=== PATIENT | female | born 1955 | race Caucasian/White ===

== ENCOUNTER 2023-04-20 10:10 | Inpatient (IN) | payer MEDICARE ==
[~2023-04-20] VITALS: Ht 160 cm; Wt 100.7 kg
[2023-04-20] MEDS ORDERED: ONDANSETRON HCL INJ 2MG/ML 2ML 2 MG/ML VIAL IV STA ×2 (10:19→13:59)
[2023-04-20] MEDS ORDERED: SODIUM CHLORIDE 0.9% 1000ML 1,000 ML IV STA (10:19)
[2023-04-20] MEDS ORDERED: Morphine 4mg INJECTION 4 MG/ML INJ IV STA ×2 (10:19→13:59)
[2023-04-20 10:58] LABS: BASOPHILS # (AUTO) 0.1 (0.0-0.1); BASOPHILS % 0.6 % (0.0-1.0); EOSINOPHILS # (AUTO) 0.3 (0.0-0.4); EOSINOPHILS % 2.4 % (0.0-6.0); HEMATOCRIT 46.2 % (34.2-44.1); HEMOGLOBIN 15.9 g/dL (12.0-16.0); LYMPHOCYTES # (AUTO) 0.9 (1.0-3.2); LYMPHOCYTES % 7.7 % (18.0-39.1); MEAN CORPUSCULAR HEMOGLOBIN 30.4 pg (28-32); MEAN CORPUSCULAR HGB CONC 34.4 g/dL (31-35); MEAN CORPUSCULAR VOLUME 88.3 fL (81-99); MONOCYTES # (AUTO) 1.2 (0.2-0.8); MONOCYTES % 9.7 % (4.4-11.3); NEUTROPHILS # (AUTO) 9.5 (2.1-6.9); NEUTROPHILS % 79.1 % (38.7-80.0); PLATELET COUNT 284 x10e3/uL (140-360); RED BLOOD COUNT 5.23 x10e6/uL (3.6-5.1); RED CELL DISTRIBUTION WIDTH 13.7 % (11.7-14.4)
[2023-04-20 11:03] LABS: CLARITY,URINE SL CLOUDY (CLEAR); COLOR,URINE YELLOW (YELLOW); KETONES,URINE 1+ (NEGATIVE); LEUKOCYTE ESTERASE ,URINE NEGATIVE (NEGATIVE); NITRITE,URINE POSITIVE (NEGATIVE); PROTEIN,URINE DIPSTICK 1+ (NEGATIVE)
[2023-04-20 11:04] LABS: URINE UROBILINOGEN 1 mg/dL (0.2 - 1)
[2023-04-20 11:12] LABS: INR 1.04; PROTHROMBIN TIME 14.2 seconds (11.9-14.5)
[2023-04-20 11:13] LABS: PARTIAL THROMBOPLASTIN TIME 33.8 seconds (23.8-35.5)
[2023-04-20 11:20] LABS: BACTERIA,URINE MANY /HPF; EPITHELIAL CELLS,URINE MANY /LPF; RBC,URINE 0-5 /HPF (0-5); WBC,URINE (MAN) 0-5 /HPF (0-5)
[2023-04-20 11:26] LABS: ALANINE AMINOTRANSFERASE 13 IU/L (0-55); ALBUMIN 3.2 g/dL (3.5-5.0); ALBUMIN/GLOBULIN RATIO 0.8 (0.8-2.0); ALKALINE PHOSPHATASE 102 IU/L (40-150); ANION GAP 15.9 mmol/L (8-16); BLOOD UREA NITROGEN 15 mg/dL (7-26); BUN/CREATININE RATIO 15 (6-25); CALCIUM 9.5 mg/dL (8.4-10.2); CARBON DIOXIDE 23 mmol/L (22-29); CHLORIDE 101 mmol/L (98-107); CREATINE KINASE 63 IU/L (29-168); GLUCOSE 117 mg/dL (74-118); LIPASE 13 U/L (8-78); MAGNESIUM 1.5 MG/DL (1.3-2.1); POTASSIUM 3.9 mmol/L (3.5-5.1); SODIUM 136 mmol/L (136-145)
[2023-04-20] MEDS ORDERED: IOPAMIDOL 370 MG/ML 100 ML INFUS..BTL INJ ONE ×2 (11:49→11:54)
[2023-04-20] MEDS ORDERED: SODIUM CHLORIDE 0.9% 250ML 250 ML ONE (11:49)
[2023-04-20] MEDS ORDERED: SODIUM CHLORIDE 0.9% 1000ML 1,000 ML IV SCH (14:00)
[2023-04-20] MEDS ORDERED: Morphine 4mg INJECTION 4 MG/ML INJ IV PRN (14:00)
[2023-04-20] MEDS ORDERED: HYDRALAZINE HCL 20 MG/ML VIAL IV PRN (15:45)
[2023-04-20] MEDS ORDERED: LIDOCAINE 4% PATCH TP PRN (15:45)
[2023-04-20] MEDS ORDERED: DIPHENHYDRAMINE HCL 25 MG CAP PO PRN (15:45)
[2023-04-20] MEDS ORDERED: BENZONATATE 100 MG CAP PO PRN (15:45)
[2023-04-20] MEDS ORDERED: DEXTROSE 50% SYRINGE 50 ML IV PRN (15:45)
[2023-04-20] MEDS ORDERED: MELATONIN 5 MG TABLET PO PRN (15:45)
[2023-04-20] MEDS ORDERED: ACETAMINOPHEN 325 MG TAB PO PRN (15:45)
[2023-04-20] MEDS ORDERED: SIMETHICONE 80 MG CHEW PO PRN (15:45)
[2023-04-20] MEDS ORDERED: ALBUTEROL/IPRATROPIUM 3 ML NEB NEB PRN (15:45)
[2023-04-20] MEDS ORDERED: POTASSIUM CHLORIDE 20 MEQ TAB CR PO PRN (15:45)
[2023-04-20] MEDS ORDERED: HYDROCODONE/APAP 5MG-325MG TAB PO PRN (15:45)
[2023-04-20] MEDS ORDERED: DOCUSATE SODIUM 100 MG CAP PO PRN (15:45)
[2023-04-20 16:29] VITALS: BP 119/72; O2SAT 98
[2023-04-20 16:30] VITALS: BP 119/72; O2SAT 98
[2023-04-20] MEDS: DEXTROSE 5%/0.9% SOD CHL 1,000 ML IV SCH (16:50)
[2023-04-20 20:00] VITALS: BP 111/64; PULSE 74; RESP 23; TEMP 98.3; O2SAT 95
[2023-04-20 20:06] VITALS: BP 119/72; O2SAT 98
[2023-04-20] MEDS: ONDANSETRON HCL INJ 2MG/ML 2ML 2 MG/ML VIAL IV PRN (20:19)
[2023-04-20] MEDS: Morphine 2mg Syringe 2 MG/ML SYR IV PRN (20:19)
[2023-04-20 20:36] VITALS: PULSE 71; RESP 18; O2SAT 99
[2023-04-21] VITALS (8 sets, daily range): BP systolic 105–119; BP diastolic 59–76; PULSE 65–77; RESP 16–21; TEMP 97.9–98.3; O2SAT 96–99
[2023-04-21] MEDS: DEXTROSE 5%/0.9% SOD CHL 1,000 ML IV SCH ×3 (01:45→13:11)
[2023-04-21 05:13] LABS: BASOPHILS # (AUTO) 0.1 (0.0-0.1); BASOPHILS % 0.9 % (0.0-1.0); EOSINOPHILS # (AUTO) 0.3 (0.0-0.4); EOSINOPHILS % 3.4 % (0.0-6.0); HEMATOCRIT 43.4 % (34.2-44.1); LYMPHOCYTES # (AUTO) 1.1 (1.0-3.2); LYMPHOCYTES % 11.9 % (18.0-39.1); MEAN CORPUSCULAR HGB CONC 32.3 g/dL (31-35); MEAN CORPUSCULAR VOLUME 93.1 fL (81-99); MONOCYTES # (AUTO) 1.1 (0.2-0.8); MONOCYTES % 11.8 % (4.4-11.3); NEUTROPHILS # (AUTO) 6.6 (2.1-6.9); NEUTROPHILS % 71.2 % (38.7-80.0); PLATELET COUNT 218 x10e3/uL (140-360); RED BLOOD COUNT 4.66 x10e6/uL (3.6-5.1); RED CELL DISTRIBUTION WIDTH 13.6 % (11.7-14.4)
[2023-04-21] MEDS: Morphine 2mg Syringe 2 MG/ML SYR IV PRN (05:23)
[2023-04-21 05:50] LABS: ALBUMIN 2.8 g/dL (3.5-5.0); ALBUMIN/GLOBULIN RATIO 0.8 (0.8-2.0); ANION GAP 12.9 mmol/L (8-16); POTASSIUM 3.9 mmol/L (3.5-5.1)
[2023-04-21 06:02] LABS: CREATINE KINASE 110 IU/L (29-168)
[2023-04-21] MEDS: PANTOPRAZOLE SOD 40 MG TABEC PO SCH (07:30)
[2023-04-21] MEDS ORDERED: HYDROMORPHONE 1MG/1ML INJ ONE (08:05)
[2023-04-21] MEDS ORDERED: BUPIVACAINE 0.5%/EPI 30 ML SDV INJ ONE (09:34)
[2023-04-21] MEDS ORDERED: HYDROCODONE/APAP 7.5MG-325MG 1 EA TAB PO PRN (11:15)
[2023-04-21] MEDS ORDERED: SEVOFLURANE INHAL SOLN 250 ML PEN BTL ONE (12:45)
[2023-04-21] MEDS ORDERED: ONDANSETRON HCL INJ 2MG/ML 2ML 2 MG/ML VIAL ONE (12:45)
[2023-04-21] MEDS ORDERED: PROPOFOL IV EMULSION 10 MG/ML 20 ML VIAL ONE (12:45)
[2023-04-21] MEDS ORDERED: POVIDONE IODINE 0.05% 0.05 % ML PO ONE (12:45)
[2023-04-21] MEDS ORDERED: DEXAMETHASONE SOD PHOS INJ 4 MG/ML SDV ONE (12:45)
[2023-04-21] MEDS ORDERED: SUCCINYLCHOLINE CHLORIDE 20 MG/ML 10ML VIAL ONE (12:45)
[2023-04-21] MEDS ORDERED: ROCURONIUM BROMIDE 10 MG/ML 5ML VIAL IV ONE (12:45)
[2023-04-21] MEDS ORDERED: LIDOCAINE HCL 2% LOCAL INJ 5 ML SDV VIAL INJ ONE (12:45)
[2023-04-21 14:42] LABS: CREATINE KINASE 100 IU/L (29-168)
[2023-04-21] MEDS: ONDANSETRON HCL INJ 2MG/ML 2ML 2 MG/ML VIAL IV PRN ×2 (17:32→21:18)
[2023-04-21] MEDS: HYDROMORPHONE 1MG/1ML INJ IV PRN ×2 (17:33→21:19)
[2023-04-22] VITALS: BP 116/65; PULSE 79; RESP 20; TEMP 97.9; O2SAT 98
[2023-04-22 04:00] VITALS: BP 113/69; PULSE 67; RESP 20; TEMP 98; O2SAT 98
[2023-04-22 05:24] LABS: BASOPHILS # (AUTO) 0.1 (0.0-0.1); BASOPHILS % 0.4 % (0.0-1.0); EOSINOPHILS % 0.1 % (0.0-6.0); HEMATOCRIT 40.9 % (34.2-44.1); HEMOGLOBIN 13.5 g/dL (12.0-16.0); LYMPHOCYTES # (AUTO) 0.6 (1.0-3.2); LYMPHOCYTES % 5.4 % (18.0-39.1); MEAN CORPUSCULAR HEMOGLOBIN 30.3 pg (28-32); MEAN CORPUSCULAR VOLUME 91.9 fL (81-99); MONOCYTES # (AUTO) 0.7 (0.2-0.8); MONOCYTES % 6.3 % (4.4-11.3); NEUTROPHILS % 87.2 % (38.7-80.0); PLATELET COUNT 259 x10e3/uL (140-360); RED BLOOD COUNT 4.45 x10e6/uL (3.6-5.1); RED CELL DISTRIBUTION WIDTH 13.2 % (11.7-14.4)
[2023-04-22 06:04] LABS: ALBUMIN 2.7 g/dL (3.5-5.0); ALBUMIN/GLOBULIN RATIO 0.8 (0.8-2.0); ANION GAP 11.9 mmol/L (8-16); CALCIUM 8.8 mg/dL (8.4-10.2); CREATININE, SERUM 0.89 mg/dL (0.57-1.11); POTASSIUM 3.9 mmol/L (3.5-5.1)
[2023-04-22 08:00] VITALS: BP 102/52; PULSE 67; RESP 18; TEMP 97.9; O2SAT 98
[2023-04-22 08:08] VITALS: BP 102/52; PULSE 67; RESP 18; TEMP 97.9; O2SAT 97
[2023-04-22] MEDS: PANTOPRAZOLE SOD 40 MG TABEC PO SCH (08:20)
[2023-04-22] MEDS ORDERED: VENLAFAXINE HC150 MG PO (11:11)
[2023-04-22] MEDS ORDERED: ATENOLOL25 MG PO (11:11)
[2023-04-22] MEDS ORDERED: LISINOPRIL-HCT1 EACH PO (11:11)
[2023-04-22 11:27] VITALS: BP 109/60; PULSE 64; RESP 19; TEMP 98.3; O2SAT 98
[2023-04-22] MEDS ORDERED: VENLAFAXINE HCL PO SCH (11:30)
[2023-04-22] MEDS ORDERED: VENLAFAXINE HCL 75 MG CAPCR PO SCH (12:00)
[2023-04-22 13:28] VITALS: PULSE 64; RESP 18; O2SAT 98
== END 2023-04-22 16:05 | disposition home or self-care (01) | DRG 418 ==
LOC: ER 10:21 → ERHOLD 14:02 → MED/SURG 16:00
PROVIDERS: ADMIT Internal Medicine; ATTEND Internal Medicine
PROC: 0FT44ZZ Resection of Gallbladder, Percutaneous Endoscopic Approach (ICD-10-PCS; principal; 2023-04-21 09:37)
DX: K80.00 Calculus of gallbladder with acute cholecystitis without obstruction (principal); N17.9 Acute kidney failure, unspecified; R39.2 Extrarenal uremia; E86.0 Dehydration; I10 Essential (primary) hypertension; F32.A Depression, unspecified; F41.9 Anxiety disorder, unspecified; Z85.3 Personal history of malignant neoplasm of breast; Z90.13 Acquired absence of bilateral breasts and nipples; Z20.822 Contact with and (suspected) exposure to COVID-19
CPT/HCPCS: 36415; 70450; 74178; 76705; 80053; 81001; 82550; 82948; 83690; 83735; 84484; 85025; 85610; 85730; 87086; 88304; 93005; 94760; 94799; 99284; C1766; J0330; J0696; J1100; J1170; J2001; J2270; J2405; J2543; J7030; J7042; J7050; Q9967